=== PATIENT | female | born 1965 | race Caucasian/White ===

== ENCOUNTER 2020-10-16 18:54 | Emergency (ER) | payer SELFPAY ==
[2020-10-16 18:57] VITALS: BP 203/107; PULSE 80; RESP 22; TEMP 36.8; O2SAT 97
--- NOTE | 2020-10-16 19:04 | DI.RAD.S_ITS ---
PROCEDURE: XR WRIST RT MIN 3V INDICATIONS: wrist pain no known injury TECHNIQUE: 3 views of the wrist were acquired. COMPARISON: None. FINDINGS: Bones: No fractures or dislocations. No suspicious bony lesions. Osteoarthritic change at the radiocarpal joint is moderately severe. Scaphoid view: No trauma to the scaphoid is seen but there is moderately severe scaphoid degenerative osteoarthritic change. Soft tissues: No suspicious soft tissue calcifications. IMPRESSION: Moderately severe degenerative osteoarthritic change at the radiocarpal joint and also at the interface between the scaphoid and the trapezium. This reduces ability of the examination to detect acute fracture. The history indicates no recent trauma, however. Dictated by: Mason Muñoz M.D. on 10/16/2020 at 19:45 Approved by: Mason Muñoz M.D. on 10/16/2020 at 19:46
--- NOTE | 2020-10-16 20:30 | ED_ITS ---
HPI - Extremity Injury (Upper) General Chief Complaint: Extremity Injury, Upper Stated Complaint: RIGHT WRIST SWELLING Time Seen by Provider: 10/16/20 18:58 Source: patient Mode of arrival: Ambulatory Limitations: no limitations History of Present Illness HPI narrative: 54-year-old female daily smoker with history of chronic wrist pain and arthritis in her right wrist since a prior injury. She states she has an orthopedist who has recommended effusion. She presents with a few days of severe pain and swelling in the right wrist in the absence of any known injury or overuse. She denies any numbness, tingling or weakness. She denies any fever or chills. She denies any elbow or shoulder involvement. She states her pain is significantly worse with range of motion and improves with rest. She states she has had similar circumstances in the past and had improvement with pain meds. She denies any history of gout. Onset (ago): day(s) Other Extremity Injury: Right: wrist Other injuries: none Handedness: right Relieving factors: rest Exacerbating factors: movement of extremity Associated symptoms: denies other symptoms Related Data Home Medications Medication Instructions Recorded Confirmed atorvastatin 10 mg PO BEDTIME 10/16/20 10/16/20 Previous Rx's Medication Instructions Recorded hydrocodone-acetaminophen 1 tab PO Q4-6H PRN #10 tab 10/16/20 ketorolac 10 mg PO Q6H PRN #14 tab 10/16/20 Allergies Allergy/AdvReac Type Severity Reaction Status Date / Time codeine [CODEINE] Allergy Unknown Verified 10/16/20 20:08 Iodine and Iodide Containing Allergy Unknown Verified 10/16/20 20:08 Produc [IODINE AND IODIDE CONTAINING PRODUC] morphine [MORPHINE] Allergy Unknown Verified 10/16/20 20:08 oxycodone [From PERCOCET] Allergy Unknown Verified 10/16/20 20:08 CONTRAST DYE Allergy Unknown HIVES Uncoded 12/03/17 12:20 Review of Systems Constitutional Constitutional: Denies chills, Denies fatigue, Denies fever(s), Denies frequent falls, Denies lethargy and Denies weakness Eyes Eyes: Denies change in vision, Denies eye discharge, Denies irritation and Denies loss of vision ENT Ears, Nose, Mouth, and Throat: Denies change in voice, Denies dizziness, Denies neck pain, Denies sore throat and Denies throat swelling Cardiovascular Cardiovascular: Denies chest pain, Denies irregular heart rhythm, Denies lightheadedness, Denies palpitations, Denies dyspnea, Denies dyspnea on exertion and Denies orthopnea Respiratory Respiratory: Denies cough, Denies dyspnea, Denies dyspnea on exertion and Denies wheezing Gastrointestinal Gastrointestinal: Denies abdominal pain, Denies change in bowel habits, Denies diarrhea, Denies nausea and Denies vomiting Musculoskeletal Musculoskeletal: Reports arthralgias, Reports joint swelling, Reports limited range of motion, Denies neck pain and Denies numbness Integumentary/Breasts Skin/Breast: Denies pruritus, Denies erythema, Denies rash and Denies wounds Neurologic Neurologic: Denies behavioral changes, Denies confusion, Denies dizziness, Denies frequent falls, Denies loss of vision, Denies numbness and Denies weakness Psychiatric Psychiatric: Denies anxiety, Denies behavioral changes, Denies confusion, Denies depression, Denies homicidal ideation and Denies suicidal ideation Endocrine Endocrine: Denies fatigue, Denies flushing and Denies palpitations Hematologic/Lymphatic Hematologic/Lymphatic: Denies easy bruising Allergic/Immunologic Allergic/Immunologic: Denies urticaria, Denies throat swelling and Denies wheezing Patient History Social History Smoking Status: Current every day smoker Smoking Status: Current every day smoker alcohol intake frequency: 0-2 drinks per day Exam Narrative Exam Narrative: GEN: AOx3 and in mild distress EYES: Pupils are equal, round, and reactive to light and accommodation. Extraoccular muscles are intact bilaterally. There is no subconjunctival hemorrhage or exudate. CHEST: Lungs are clear to auscultation bilaterally and free of wheezes, rales, or rhonchi. Heart rate is regular rhythm, there are no murmurs, clicks, rubs, or gallops. There is no chest wall tenderness. ABD: Abdomen is soft and nontender. There is no guarding or rebound. Bowel sounds are normal in all 4 quadrants. There is no mass or organomegaly. EXT: Decreased range of motion secondary to pain in right wrist, swelling noted over dorsal aspect of distal radiocarpal region. No numbness, tingling or weakness noted. No erythema or warmth, no lymphangitis SKIN: Warm, pink, and dry. No erythema or rash Initial Vital Signs Initial Vital Signs: Vital Signs Temperature 98.2 F 10/16/20 18:57 Pulse Rate 80 10/16/20 18:57 Respiratory Rate 22 10/16/20 18:57 Blood Pressure 203/107 H 10/16/20 18:57 Pulse Oximetry 97 10/16/20 18:57 Procedures Orthopedic Splinting/Casting Injury #1: Side: right Upper Extremity Injury Location: wrist Upper Extremity Immobilizer: wrist splint Post splinting neuro exam: intact Post splinting vascular exam: intact Placed by: Nursing Course Orders Ordered: ED Orders 10/16/20 19:04 XR wrist RT min 3V Stat Discontinued Medications Hydrocodone Bitart/Acetaminophen (Hydrocodone/Acet 5/325 Prepack) 1 bottle MISC SEEINSTR ONE Stop: 10/16/20 20:33 Last Admin: 10/16/20 20:46 Dose: 1 bottle Documented by: SABINA Vital Signs Vital signs: Vital Signs - 8 hr 10/16/20 18:57 Temperature 98.2 F Pulse Rate 80 Respiratory Rate 22 Blood Pressure 203/107 H Pulse Oximetry 97 MDM - Extremity Injury (Upper) Imaging Data Extremity x-ray #1: Radiologist's Impression: [address] [id number] ReportSigned Patient: Rachna Smith LMR#: [id number]: 1965Acct:[id number]/Sex: 54 / FDate of Service: 10/16/20Loc: EDAccession Number: [id number] Procedure: XR wrist RT min 3V Ordering Provider: Toni Youngblood D.O. PROCEDURE: XR WRIST RT MIN 3V INDICATIONS: wrist pain no known injury TECHNIQUE: 3 views of the wrist were acquired. COMPARISON: None. FINDINGS: Bones: No fractures or dislocations. No suspicious bony lesions. Osteoarthritic change at the radiocarpal joint is moderately severe. Scaphoid view: No trauma to the scaphoid is seen but there is moderately severe scaphoid degenerative osteoarthritic change. Soft tissues: No suspicious soft tissue calcifications. IMPRESSION: Moderately severe degenerative osteoarthritic change at the radiocarpal joint and also at the interface between the scaphoid and the trapezium. This reduces ability of the examination to detect acute fracture. The history indicates no recent trauma, however. Dictated by: Mason Muñoz M.D. on 10/16/2020 at 19:45 Approved by: Mason Muñoz M.D. on 10/16/2020 at 19:46 [facility] Narrative Medical decision making narrative: Multiple etiologies for patient's symptoms considered including: [Arthritis versus infectious etiology versus gout versus other] Patient's symptoms improved over duration of stay with above-stated therapies. Findings and discharge diagnosis discussed with patient/family followed by verbalization of understanding Return precautions discussed with patient/family whom verbalize understanding. Discharge Plan Departure Patient Disposition: Home Clinical Impression: Acute wrist pain Qualifiers: Laterality: right Qualified Code(s): M25.531 - Pain in right wrist Instructions: DI for Wrist Pain Activity Restrictions/Additional Instructions: *You have been diagnosed with [acute on chronic right wrist pain, no significant findings on x-ray] *What to do: *Take medications as directed: Prescription transmitted to [facility] for [facility] and [place] at your request *Follow up with your primary care provider in 2-3 days, call for an appointment. Let them know you were seen in the Emergency Department and that we ask that you be seen in follow up *Return to ER if you should have any new, worsening or concerning symptoms, such as [increasing pain, redness, numbness, tingling, fever greater than 101 F, shaking chills or other bothersome symptoms] Prescriptions: New hydrocodone-acetaminophen 5-325 mg tablet 1 tab PO Q4-6H PRN (Reason: pain) Qty: 10 RF: 0 ketorolac 10 mg tablet 10 mg PO Q6H PRN (Reason: pain) Qty: 14 RF: 0 No Action atorvastatin 10 mg tablet 10 mg PO BEDTIME RF: 0 Referrals: [facility] [Outside]
--- NOTE | 2020-10-16 20:32 | PC.NURSE ---
CSM wnl, movement only limited by pain. States she has chronic arthritis. this is worse.
[2020-10-16] MEDS: HYDROCODONE/ACET 5/325 PREPACK 1 BOTTLE MISC (20:46)
== END 2020-10-16 20:51 | disposition home or self-care (01) ==
PROVIDERS: Emergency Provider Emergency Medicine
DX: M25.531 Pain in right wrist (principal)
CPT/HCPCS: 73110; 99283